=== PATIENT | female | born 1995 | race Caucasian/White ===

== ENCOUNTER → 2018-06-10 | Outpatient (REF) | payer BC, SELFPAY | LOC: M LAB LCGH 11:40 | PROVIDERS: ATTEND Nurse Practitioner Adult Health | DX: Z12.4 Encounter for screening for malignant neoplasm of cervix (principal) ==

== ENCOUNTER 2023-06-03 06:18 | Observation (INO) | payer BC ==
[~2023-06-03] VITALS: Ht 157.5 cm; Wt 66.7 kg
[~2023-06-03 06:18] MED LIST: DROS4TAB PO; IBUP200C27 PO; LR 1,000 ML IV SCH
[2023-06-03] MEDS ORDERED: MIDAZOLAM INJ 2MG/2ML VIAL As Ordered ONE (07:24)
[2023-06-03] MEDS ORDERED: ROCURONIUM BROMIDE 50MG/5ML VIAL As Ordered ONE (07:24)
[2023-06-03] MEDS ORDERED: ONDANSETRON 4MG 2ML VIAL As Ordered ONE (07:24)
[2023-06-03] MEDS ORDERED: LIDOCAINE 2% 100MG/5ML SDV (FOR ANES.) As Ordered ONE (07:24)
[2023-06-03] MEDS ORDERED: dexmedeTOMIDine (4MCG/ML)200MCG/50ML BTL (PRECEDEX) As Ordered ONE (07:24)
[2023-06-03] MEDS ORDERED: fentaNYL 250 MCG/5 ML INJECTION As Ordered ONE (07:24)
[2023-06-03] MEDS ORDERED: propofoL 200 MG/20 ML VIAL As Ordered ONE (07:24)
[2023-06-03] MEDS ORDERED: LACRILUBE (AKWA TEARS) OPHTH OINT 3.5GM As Ordered ONE (08:03)
[2023-06-03] MEDS: ceFAZolin SOD 2 GM in IV 1 EA IV ONE (08:15)
[2023-06-03] MEDS: HEPARIN SOD (PORCINE) 5000UNITS/ML 1ML VIAL/SYRINGE SQ ONE (08:20)
[2023-06-03] MEDS: GENTAMICIN SULF 80MG/2ML VIAL As Ordered ONE (08:30)
[2023-06-03] MEDS ORDERED: ACETAMINOPHEN 1000MG 100ML IV BAG As Ordered ONE (08:34)
[2023-06-03] MEDS ORDERED: SUGAMMADEX SODIUM 500 MG/5 ML VIAL (BRIDION) As Ordered ONE (08:53)
[2023-06-03] MEDS ORDERED: HYDROmorphone HCL 2MG/ML 1ML VIAL As Ordered ONE (08:54)
[2023-06-03] MEDS ORDERED: ceFAZolin 2 GM/D5W 50 ML IV BAG As Ordered ONE (11:24)
[2023-06-03] MEDS ORDERED: oxyCODONE 5MG TAB PO PRN (12:00)
[2023-06-03] MEDS ORDERED: fentaNYL 100 MCG/2 ML INJECTION IV PRN (12:00)
[2023-06-03] MEDS ORDERED: HYDROMORPHONE HCL 0.5 MG/ 0.5 ML SYRINGE IV PRN (12:00)
[2023-06-03] MEDS ORDERED: PERCOCET 5MG/325MG TAB PO PRN (12:05)
[2023-06-03] MEDS ORDERED: ACETAMINOPHEN TAB 650MG DOSE (2X325MG) PO PRN (12:05)
[2023-06-03] MEDS: ONDANSETRON 4MG 2ML VIAL IV PRN ×2 (12:40→15:20)
[2023-06-03] MEDS: METOCLOPRAMIDE INJ 10MG/2ML VIAL IV STA (12:52)
[2023-06-03 14:30] VITALS: BP 104/68; TEMP 97.5; O2SAT 100
[2023-06-03] MEDS: ceFAZolin SOD 1 GM in D5W MINI-BAG PLUS 50 ML IV SCH (15:20)
[2023-06-03 15:45] VITALS: BP 118/72; TEMP 97.9; O2SAT 99
[2023-06-03] MEDS: LR 1,000 ML IV SCH ×2 (16:09→19:40)
[2023-06-03 17:00] VITALS: BP 112/66; TEMP 97.8; O2SAT 100
[2023-06-03] MEDS: traMADol 50 MG TAB PO PRN (17:00)
[2023-06-03 18:00] VITALS: BP 118/68; TEMP 98.1; O2SAT 99
[2023-06-03 20:00] VITALS: BP 110/75; TEMP 97.7; O2SAT 97
[2023-06-03] MEDS: PROMETHAZINE 25MG/ML 1ML VIAL IV ONE (20:42)
[2023-06-04 01:00] VITALS: BP 110/65; TEMP 97.9; O2SAT 97
[2023-06-04 05:00] VITALS: BP 105/60; TEMP 98.1; O2SAT 98
[2023-06-04] MEDS ORDERED: HOME MED LIST COMPLETE! XX SCH (09:45)
[2023-06-04] MEDS ORDERED: TRAM50TA2 PO (10:50)
== END 2023-06-04 12:35 | disposition home or self-care (01) ==
LOC: M SDC 06:18 → M RR INP 06:19 → M MS5PR 14:12
PROVIDERS: ADMIT Plastic Surgery Surgery of the Hand; ATTEND Plastic Surgery Surgery of the Hand
DX: N62 Hypertrophy of breast (principal); K21.9 Gastro-esophageal reflux disease without esophagitis; G43.909 Migraine, unspecified, not intractable, without status migrainosus; Z79.899 Other long term (current) drug therapy
CPT/HCPCS: 19318; 36415; 81025; 85730; 88305; 96365; 96366; 96375; C9290; J0131; J0665; J0690; J1100; J1170; J1580; J2250; J2405; J2550; J2765; J3010